=== PATIENT | male | born 1940 | race Caucasian/White ===

== ENCOUNTER 2017-10-26 10:31 | Emergency (ER) | payer MEDICARE, BC ==
[~2017-10-26] VITALS: Ht 167.6 cm; Wt 90.7 kg
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
--- NOTE | 2017-10-26 11:37 | EKG ---
[address] [address] Test Date: 2017-10-26 Test Time: 10:52:02 Pat Name: MARIANELA SHIPLEY Department: Room: Gender: M Dietitian Research: : 1940 Requested By: EHSAN TENORIO Order Number: [id number] Reading MD: Petye Mcmanus MD Measurements Intervals [place] Rate: 69 P: 0 MI: 262 QRS: 9 QRSD: 80 T: 28 QT: 398 QTc: 428 Interpretive Statements SINUS RHYTHM PROLONGED MI INTERVAL Electronically Signed On 10-27-2017 15:25:19 CDT by Petey Mcmanus MD
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
[2017-10-26 12:27] VITALS: BP 146/78
== END 2017-10-26 12:28 | disposition home or self-care (01) ==
LOC: ER 10:31
DX: S29.9XXA Unspecified injury of thorax, initial encounter (principal); M54.12 Radiculopathy, cervical region; Z98.890 Other specified postprocedural states; V89.2XXA Person injured in unspecified motor-vehicle accident, traffic, initial encounter; Y93.I9 Activity, other involving external motion; Y92.488 Other paved roadways as the place of occurrence of the external cause; Y99.8 Other external cause status
CPT/HCPCS: 71046; 72040; 93005; 99284-25

== ENCOUNTER → 2017-12-06 | Outpatient (CLI) | payer MEDICARE, BC ==
[~2017-12-06] MED LIST: 0.9 % SODIUM CHLORIDE 10 ML VIAL ONE; DEXAMETHASONE SOD PHOS 4 MG/ML VIAL ONE; IOHEXOL 300 MG/ML 50 ML VIAL. ONE; LIDOCAINE 1% PF 2 ML VIAL. ONE
== END | disposition home or self-care (01) ==
LOC: SURG 11:01
PROVIDERS: ATTEND Anesthesiology
DX: M48.062 Spinal stenosis, lumbar region with neurogenic claudication (principal); M54.16 Radiculopathy, lumbar region; I10 Essential (primary) hypertension; M19.90 Unspecified osteoarthritis, unspecified site; Z98.890 Other specified postprocedural states; Z79.899 Other long term (current) drug therapy; Z72.89 Other problems related to lifestyle
CPT/HCPCS: 62323; J1100; Q9967

== ENCOUNTER → 2017-12-27 | Outpatient (CLI) | payer MEDICARE, BC | END | disposition home or self-care (01) | LOC: SURG 09:28 | PROVIDERS: ATTEND Anesthesiology | DX: M54.16 Radiculopathy, lumbar region (principal); M48.062 Spinal stenosis, lumbar region with neurogenic claudication | CPT/HCPCS: 99213 ==

== ENCOUNTER → 2018-02-14 | Outpatient (CLI) | payer MEDICARE, BC | END | disposition home or self-care (01) | LOC: SURG 10:21 | PROVIDERS: ATTEND Anesthesiology | DX: M48.061 Spinal stenosis, lumbar region without neurogenic claudication (principal); M54.16 Radiculopathy, lumbar region; M48.062 Spinal stenosis, lumbar region with neurogenic claudication; G95.89 Other specified diseases of spinal cord; I10 Essential (primary) hypertension; M19.90 Unspecified osteoarthritis, unspecified site | CPT/HCPCS: 99214 ==

== ENCOUNTER → 2018-05-16 | Outpatient (CLI) | payer MEDICARE, BC ==
[~2018-05-16] MED LIST changes: -0.9 % SODIUM CHLORIDE 10 ML VIAL ONE; +BUPIVACAINE MPF 0.25% 10 ML VIAL. ONE; -DEXAMETHASONE SOD PHOS 4 MG/ML VIAL ONE; -LIDOCAINE 1% PF 2 ML VIAL. ONE; +LIDOCAINE 1% PF 30 ML VIAL. ONE; +ORPH-16 PO; +PRED50TA PO; +methylPREDNISolone ACETATE 40 MG/ML VIAL. ONE
== END | disposition home or self-care (01) ==
LOC: SURG 11:47
PROVIDERS: ATTEND Anesthesiology
DX: M46.1 Sacroiliitis, not elsewhere classified (principal); I10 Essential (primary) hypertension; M19.90 Unspecified osteoarthritis, unspecified site; Z98.890 Other specified postprocedural states; Z79.899 Other long term (current) drug therapy; M47.817 Spondylosis without myelopathy or radiculopathy, lumbosacral region; Z72.89 Other problems related to lifestyle; Z98.49 Cataract extraction status, unspecified eye
CPT/HCPCS: G0260; J1030; J2001; J3490; Q9967; 27096

== ENCOUNTER 2018-05-31 10:06 | Emergency (ER) | payer MEDICARE, BC ==
[~2018-05-31] VITALS: Ht 167.6 cm; Wt 85.0 kg
[2018-05-31 10:21] VITALS: BP 131/72
[2018-05-31] MEDS ORDERED: predniSONE 10 MG TABLET PO ONE (10:30)
[2018-05-31] MEDS ORDERED: PRED50TA PO (10:33)
[2018-05-31] MEDS ORDERED: ORPH-16 PO (10:33)
--- NOTE | 2018-05-31 10:33 | PHYS DOC ---
Past History Past Medical History: Other Additional Past Medical Histor: "irregular heartbeat" Past Surgical History: Cervical Fusion, Lumbar Laminectomy, Other Alcohol Use: None Drug Use: None Adult General Chief Complaint Chief Complaint: BACK PAIN OR INJURY [facility] HPI Patient is a 78-year-old male who presents with left low back pain. This has been present for the past week after getting physical therapy for previous back discomfort. He denies any loss of bowel or bladder control. Denies any radicular symptoms below the knee. Denies any new trauma. He does have a history of previous back surgery including a laminectomy. He has had previous injections of the lumbar spine. He called the surgeon's office today who was unable to get him into the office for a visit and they suggested that he present to the emergency department. Patient denies any fever. Denies any personal history of cancer.[] Review of Systems Review of Systems Constitutional: Denies fever or chills [] Eyes: Denies change in visual acuity, redness, or eye pain [] HENT: Denies nasal congestion or sore throat [] Respiratory: Denies cough or shortness of breath [] Cardiovascular: No additional information not addressed in HPI [] GI: Denies abdominal pain, nausea, vomiting, bloody stools or diarrhea [] : Denies dysuria or hematuria [] Musculoskeletal: See history of present illness[] Integument: Denies rash or skin lesions [] Neurologic: Denies headache, focal weakness or sensory changes [] Endocrine: Denies polyuria or polydipsia [] All other systems were reviewed and found to be within normal limits, except as documented in this note. Allergies Allergies Allergies Coded Allergies Type Severity Reaction Last Updated Verified No Known Drug Allergies 10/26/17 No Physical Exam Physical Exam Constitutional: Well developed, well nourished, mild discomfort, non-toxic appearance. [] HENT: Normocephalic, atraumatic, bilateral external ears normal, oropharynx moist, no oral exudates, nose normal. [] Eyes: PERRLA, EOMI, conjunctiva normal, no discharge. [] Neck: Normal range of motion, no tenderness, supple, no stridor. [] Cardiovascular:Heart rate regular rhythm, no murmur [] Lungs & Thorax: Bilateral breath sounds clear to auscultation [] Abdomen: Bowel sounds normal, soft, no tenderness, no masses, no pulsatile masses. [] Skin: Warm, dry, no erythema, no rash. [] Back: Tenderness and spasm of the left lumbar paraspinal musculature. no CVA tenderness. [] Extremities: No tenderness, no cyanosis, no clubbing, ROM intact, no edema. Patient is distal neurovascularly intact, DTRs are 2 over 4 and symmetric patella and Achilles, gait limited by discomfort but no antalgic gait. [] Neurologic: Alert and oriented X 3, normal motor function, normal sensory function, no focal deficits noted. [] Psychologic: Affect normal, judgement normal, mood normal. [] EKG EKG [] Radiology/Procedures Radiology/Procedures [] Course & Med Decision Making Course & Med Decision Making Pertinent Labs and Imaging studies reviewed. (See chart for details) ED course and medical decision making: Patient with long-standing low back pain issues that has previously had surgery and no new radicular symptoms. Do not see any need for imaging at this time. Treatment modalities are limited by patient being on Eliquis. Patient was feeling significantly better after medication administered in the emergency department. Discussed treatment options to include inversion table as well as the physical therapy. Patient has an appointment with physical therapy tomorrow and an appointment with the surgeon next Tuesday. [] Dragon Disclaimer Dragon Disclaimer This electronic medical record was generated, in whole or in part, using a voice recognition dictation system. Departure Departure: Impression: Primary Impression: Low back pain Disposition: HOME, SELF-CARE Condition: IMPROVED Referrals: AMBREEN ORDONEZ MD (PCP) Follow-up in 2 days Patient Instructions: Low Back Strain with [facility] Additional Instructions: Follow-up with your regular doctor in 2 days. Return to the ER if loss of bowel or bladder control or any other concerns. Scripts Prednisone (PREDNISONE) 50 Mg Tablet 1 TAB PO DAILY for INFLAMMATION, #5 TAB Prov: ANNAMARIE QUEZADA DO 05/31/18 Orphenadrine Citrate (ORPHENADRINE CITRATE) 100 Mg Tablet.er 100 MG PO BID for BACK PAIN, #20 TAB.SR Prov: ANNAMARIE QUEZADA DO 05/31/18 Problem Qualifiers Primary Impression: Low back pain Chronicity: unspecified Back pain laterality: left Sciatica presence: unspecified whether sciatica present Qualified Codes: M54.5 - Low back pain ANNAMARIE QUEZADA DO May 31, 2018 10:33
[2018-05-31] MEDS ORDERED: IOHEXOL 300 MG/ML 75 ML VIAL. IV ONE (12:30)
== END 2018-05-31 11:18 | disposition home or self-care (01) ==
LOC: ER 10:06
DX: M54.5 Low back pain (principal); Z98.890 Other specified postprocedural states
CPT/HCPCS: 96372; 99284; J2060; J7512